=== PATIENT | female | born 1970 | race Caucasian/White ===

== ENCOUNTER → 2017-01-29 | Outpatient (CLI) | payer MEDICAID ==
[~2017-01-29] MED LIST: ALPR1TAB2 PO; DIAZ5TAB PO; DIAZ5TAB4 PO; DOCU100C24 PO; ENOX40SY4 SQ; FENTANYL PF 100 MCG/2ML ONE; FLUO20CA19 PO; GABA300C PO; GABA600T2 PO; HYDR-3138 PO; HYDR-3307 PO; HYDR2TAB13 PO; MIDAZOLAM 1 MG/ML, 5ML ONE; MUPI22OI2 TP; NAPR550T3 PO; OXYC10TA6 PO; PANT40TA3 PO; PRAV20TA2 PO; TRAZ100T15 PO; will bring list
== END | disposition home or self-care (01) ==
LOC: RAD 08:12 → EDSTATUS 09:00
PROVIDERS: ATTEND Nurse Practitioner Family
DX: M47.896 Other spondylosis, lumbar region (principal); M51.26 Other intervertebral disc displacement, lumbar region; M43.27 Fusion of spine, lumbosacral region; G95.19 Other vascular myelopathies
CPT/HCPCS: 72148; J2250; J3010; 99156; 99157

== ENCOUNTER → 2017-10-08 | Outpatient (CLI) | payer MEDICAID ==
[~2017-10-08] MED LIST changes: -FENTANYL PF 100 MCG/2ML ONE; -HYDR-3138 PO; +HYDR-3237 PO; -HYDR2TAB13 PO; +HYDR2TAB29 PO; -MIDAZOLAM 1 MG/ML, 5ML ONE; +NAPR-850 PO; -NAPR550T3 PO
== END ==
LOC: RAD 09:29
PROVIDERS: ATTEND Orthopaedic Surgery Orthopaedic Surgery of the Spine
DX: M48.02 Spinal stenosis, cervical region (principal); M47.893 Other spondylosis, cervicothoracic region
CPT/HCPCS: 72141

== ENCOUNTER 2018-11-25 10:25 | Outpatient (CLI) | payer MEDICAID ==
[~2018-11-25 10:25] MED LIST changes: +DOCU-193 PO; -DOCU100C24 PO; -GABA600T2 PO; +GABA600T7 PO; +TRAZ-137 PO; -TRAZ100T15 PO
== END 2018-11-25 23:59 | disposition home or self-care (01) ==
LOC: CFH 10:25
PROVIDERS: ATTEND Nurse Practitioner Family
DX: R33.9 Retention of urine, unspecified (principal); R39.11 Hesitancy of micturition; K76.0 Fatty (change of) liver, not elsewhere classified
CPT/HCPCS: 76770

== ENCOUNTER → 2019-01-22 | Outpatient (CLI) | payer MEDICAID | END | disposition home or self-care (01) | LOC: CFH 13:02 | PROVIDERS: ATTEND Nurse Practitioner Family | DX: M47.892 Other spondylosis, cervical region (principal); M48.02 Spinal stenosis, cervical region | CPT/HCPCS: 72141 ==

== ENCOUNTER → 2019-03-21 | Outpatient (CLI) | payer MEDICAID | END | disposition home or self-care (01) | LOC: CFH 10:12 | PROVIDERS: ATTEND Nurse Practitioner Family | DX: Z12.31 Encounter for screening mammogram for malignant neoplasm of breast (principal); R05 Cough; F17.200 Nicotine dependence, unspecified, uncomplicated | CPT/HCPCS: 71046; 76641; 77063; 77067 ==

== ENCOUNTER → 2019-08-22 | Outpatient (CLI) | payer MEDICAID ==
[~2019-08-22] MED LIST changes: -HYDR-3307 PO; +HYDR-36 PO
== END | disposition home or self-care (01) ==
LOC: CFH 10:29
PROVIDERS: ATTEND Nurse Practitioner Family
DX: M25.511 Pain in right shoulder (principal); M75.41 Impingement syndrome of right shoulder

== ENCOUNTER 2020-04-28 12:56 | Outpatient (CLI) | payer MEDICAID ==
[~2020-04-28 12:56] MED LIST changes: +HYDR-3246 PO; -HYDR-36 PO; -TRAZ-137 PO; +TRAZ-175 PO
== END 2020-04-28 23:59 | disposition home or self-care (01) ==
LOC: CFH 12:56
PROVIDERS: ATTEND Nurse Practitioner Family
DX: Z12.31 Encounter for screening mammogram for malignant neoplasm of breast (principal)
CPT/HCPCS: 76641; 77063; 77067

== ENCOUNTER 2020-08-20 20:45 | Emergency (ER) | payer MEDICAID ==
[~2020-08-20] VITALS: Ht 180.3 cm; Wt 85.8 kg
[2020-08-20 20:59] VITALS: BP 132/77
== END 2020-08-20 23:07 | disposition home or self-care (01) ==
LOC: ED 21:15
DX: S83.91XA Sprain of unspecified site of right knee, initial encounter (principal); I10 Essential (primary) hypertension; X58.XXXA Exposure to other specified factors, initial encounter; Y93.89 Activity, other specified; Y92.89 Other specified places as the place of occurrence of the external cause; Y99.8 Other external cause status
CPT/HCPCS: 29505; 99283